=== PATIENT | male | born 1955 | race African-American/Black ===

== ENCOUNTER 2016-09-05 15:25 | Emergency (ER) | payer MEDICARE ==
[~2016-09-05] VITALS: Ht 180.3 cm; Wt 184.2 kg
[2016-09-05 17:15] VITALS: BP 176/110
[2016-09-05] MEDS ORDERED: AMOX500C PO (17:25)
--- NOTE | 2016-09-05 17:25 | PHYS DOC ---
Past Medical History Past Medical History: Cancer, Other Additional Past Medical Histor: NONHODGKINS LYMPHOMA- CHEMO- IN REMISSION Past Surgical History: No Surgical History Alcohol Use: None Drug Use: None Adult General Chief Complaint Chief Complaint: SORE THROAT [facility] HPI Patient is a 61 year old male presents to the emergency department stating that he has pain on his left inside jaw area in which she's had for the last day and a half. He states he has not take n anything for pain. He states he has had fever and chills. He has increased pain with opening and closing his mouth as well as swallowing. He states he does not have a dentist in which she can follow-up with. He denies being allergic to any medications. Review of Systems Review of Systems Constitutional: Denies fever or chills [] Eyes: Denies change in visual acuity, redness, or eye pain [] HENT: Denies nasal congestion or sore throat. Left lower dental pain with swelling Respiratory: Denies cough or shortness of breath [] Cardiovascular: No additional information not addressed in HPI [] GI: Denies abdominal pain, nausea, vomiting, bloody stools or diarrhea [] : Denies dysuria or hematuria [] Musculoskeletal: Denies back pain or joint pain [] Integument: Denies rash or skin lesions [] Neurologic: Denies headache, focal weakness or sensory changes [] Allergies Allergies Allergies Coded Allergies Type Severity Reaction Last Updated Verified No Known Drug Allergies 03/11/14 No Physical Exam Physical Exam Constitutional: Well developed, well nourished, no acute distress, non-toxic appearance. [] HENT: Normocephalic, atraumatic, bilateral external ears normal, oropharynx moist, no oral exudates, nose normal. Lateral tympanic membranes appear to be normal. Throat with no erythematous no exudate. Uvula with no deviation. Patient was noted to have an abscess in the left lower back dental area. Eyes: PERRLA, EOMI, conjunctiva normal, no discharge. [] Neck: Normal range of motion, no tenderness, supple, no stridor. [] Cardiovascular:Heart rate regular rhythm, no murmur [] Lungs & Thorax: Bilateral breath sounds clear to auscultation [] Skin: Warm, dry, no erythema, no rash. [] Back: No tenderness Extremities: No tenderness, no cyanosis, no clubbing, ROM intact, no edema. [] Neurologic: Alert and oriented X 3, normal motor function, normal sensory function, no focal deficits noted. [] Psychologic: Affect normal, judgement normal, mood normal. [] EKG EKG [] Radiology/Procedures Radiology/Procedures [] Course & Med Decision Making Course & Med Decision Making Pertinent Labs and Imaging studies reviewed. (See chart for details) Patient was provided with discharge instructions treatment regimens and follow- up recommendations. Recommended following up with a dentist within the next week. Signs and symptoms to return back to emergency department as been provided. Patient will be placed on amoxicillin 500 mg 4 times a day. Recommended warm salt water mouth gargles or times a day and prior to bedtime. Patient will be discharged home in stable condition. [] Dragon Disclaimer Dragon Disclaimer This electronic medical record was generated, in whole or in part, using a voice recognition dictation system. Departure Departure Impression: Primary Impression: Dental abscess Disposition: 01 HOME, SELF-CARE Condition: STABLE Referrals: VIRGILIO OWEN MD (PCP) Patient Instructions: Dental Abscess Additional Instructions: Home to rest Medication as prescribed Ibuprofen for fever, chills, or generalized body aches Drink plenty of fluids Followup with dentist in 5-7 days Return to emergency department as needed for signs and symptoms that become worse. Scripts Amoxicillin 500 Mg Capsule1 Cap PO QID #40 CAP Prov:MUNIR SIMON NP 09/05/16 MUNIR SIMON NP Sep 05, 2016 17:25
== END 2016-09-05 17:33 | disposition home or self-care (01) ==
LOC: ER 15:25
DX: K04.7 Periapical abscess without sinus (principal); C85.90 Non-Hodgkin lymphoma, unspecified, unspecified site
CPT/HCPCS: 99283